=== PATIENT | female | born 1995 | race Caucasian/White ===

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

== ENCOUNTER 2017-04-26 21:55 | Emergency (ER) | payer OTHER ==
[2017-04-26] MEDS ORDERED: Sodium Chloride 0.9% 1,000 ML IV ONE (22:22)
[2017-04-26 22:27] VITALS: BP 101/67; PULSE 99; RESP 16; TEMP 97.9; O2SAT 99
--- NOTE | 2017-04-26 22:32 | C.PDOC ---
History Of Present Illness 21 y/o healthy female c/o nausea, abdominal pain, subjective fever, dizziness when standing, sore throat for the last 2 days. denies urinary symptoms, denies vaginal discharge. denies sick contacts. Time Seen by Provider: 04/26/17 22:13 Chief Complaint (Nursing): Cough, Cold, Congestion History Per: Patient, Family History/Exam Limitations: no limitations Onset/Duration Of Symptoms: Days (2) Current Symptoms Are (Timing): Still Present Severity: Mild Past Medical History Reviewed: Historical Data, Nursing Documentation, Vital Signs Vital Signs: Last Vital Signs Temp 97.9 F 04/26/17 21:57 Pulse 99 H 04/26/17 21:57 Resp 16 04/26/17 21:57 BP 101/67 04/26/17 21:57 Pulse Ox 99 04/27/17 06:50 - Medical History PMH: No Chronic Diseases Family History: States: Unknown Family Hx - Social History Hx Tobacco Use: No Hx Alcohol Use: No Hx Substance Use: No Review Of Systems Constitutional: Positive for: Fever (subjective). Negative for: Chills ENT: Positive for: Throat Pain. Negative for: Ear Pain, Nose Discharge Cardiovascular: Negative for: Chest Pain, Palpitations, Light Headedness Respiratory: Negative for: Cough, Shortness of Breath Gastrointestinal: Positive for: Nausea, Abdominal Pain. Negative for: Vomiting , Diarrhea, Constipation Genitourinary: Negative for: Dysuria, Frequency, Vaginal Discharge Skin: Negative for: Rash Neurological: Positive for: Dizziness. Negative for: Weakness, Numbness Physical Exam - Physical Exam Appears: Non-toxic, No Acute Distress, Other (talking on phone and with family members present) Skin: Normal Color, Warm, Dry Head: Atraumatic, Normacephalic Eye(s): bilateral: Normal Inspection, PERRL, EOMI (no nystagmus) Ear(s): Left: Normal, Right: TM Dull Nose: Normal, No Discharge Oral Mucosa: Dry (slightly) Tongue: Normal Appearing Throat: Erythema (mild), No Exudate, Other (no tonsillar enlargement) Neck: Supple Cardiovascular: Rhythm Regular, No Murmur Respiratory: Normal Breath Sounds, No Accessory Muscle Use, No Rales, No Rhonchi , No Stridor, No Wheezing Gastrointestinal/Abdominal: Bowel Sounds, Soft, Tenderness (minimal left lateral abdominal tenderness, no rebound or guarding. ) Back: No CVA Tenderness Extremity: No Tenderness, No Pedal Edema Neurological/Psych: Oriented x3, Normal Speech, Normal Cognition, Normal Cranial Nerves, Normal Motor, Normal Sensation ED Course And Treatment - Laboratory Results Result Diagrams: 04/26/17 22:45 04/26/17 22:45 O2 Sat by Pulse Oximetry: 99 Medical Decision Making Medical Decision Making: pt feeling much better after zofran and iv fluids. neg orthostatic vital signs. pt to be discharge with tx for uti and f/u pmd Disposition Counseled Patient/Family Regarding: Studies Performed, Diagnosis, Need For Followup, Rx Given - Disposition Referrals: Demario Romero MD [Staff Provider] - Disposition: HOME/ ROUTINE Disposition Time: 23:58 Condition: IMPROVED Additional Instructions: Drink increased fluids. Take antibiotics as prescribed. Follow up with your doctor in 1-2 days. Tylenol or Motrin for pain. Return to ER for any worse symptoms. Prescriptions: Cephalexin [Keflex] 500 mg PO TID #21 capsule Instructions: Urinary Tract Infection in Women (ED), Viral Syndrome (ED) Forms: [facility] ([place]), General Discharge Instructions - Clinical Impression Clinical Impression: Viral syndrome, UTI (urinary tract infection)
[2017-04-26] MEDS ORDERED: Sodium Chloride 0.9% 1,000 ML ONE (22:39)
[2017-04-26 22:48] LABS: BASO # 0.1 K/uL (0.0-0.2); EOS # 0.1 K/uL (0.0-0.7); EOS % 1.2 % (0.0-4.0); HEMATOCRIT 38.5 % (34.0-47.0); LYMPH % 25.1 % (20.0-40.0); MEAN CELL VOLUME 83.9 fL (81.0-99.0); MEAN CORPUSCULAR HEMOGLOBIN 27.2 pg (27.0-31.0); MEAN CORPUSCULAR HGB CONC 32.5 g/dL (33.0-37.0); MONO # 1.1 K/uL (0.0-0.8); MONO % 9.5 % (0.0-10.0); RED CELL DISTRIBUTION WIDTH 16.3 % (11.5-14.5); WHITE BLOOD COUNT 12.1 K/uL (4.8-10.8)
[2017-04-26 22:55] LABS: RBC URINE 1 /hpf (0-3); URINE BACTERIA RARE (<OCC); URINE BILIRUBIN NEGATIVE (NEGATIVE); URINE BLOOD NEGATIVE (NEGATIVE); URINE COLOR Yellow (YELLOW); URINE GLUCOSE (UA) NORMAL (Normal); URINE KETONE NEGATIVE (NEGATIVE); URINE LEUKOCYTE ESTERASE 2+ Leu/uL (Negative); URINE PROTEIN 1+ mg/dL (NEGATIVE); URINE UROBILINOGEN NORMAL mg/dL (0.2-1.0); WBC URINE 24 /hpf (0-5)
[2017-04-26 23:02] LABS: ALB/GLOB RATIO 1.1 (1.0-2.1); ALKALINE PHOSPHATASE 45 U/L (38-126); ALT/SGPT 28 U/L (9-52); AST/SGOT 20 U/L (14-36); BILIRUBIN,TOTAL 0.4 mg/dL (0.2-1.3); BLOOD UREA NITROGEN 15 mg/dL (7-17); GFR AFRICAN-AMERICAN > 60; GLUCOSE,RANDOM 78 mg/dL (65-105); TOTAL PROTEIN 8.4 g/dL (6.3-8.3)
[2017-04-26 23:38] LABS: POTASSIUM 3.6 mmol/L (3.6-5.2)
[2017-04-26 23:39] LABS: CARBON DIOXIDE 22 mmol/L (22-30); CHLORIDE 103 mmol/L (98-107); SODIUM 137 mmol/L (132-148)
== END 2017-04-27 00:07 | disposition home or self-care (01) ==
LOC: C.ER 21:55
DX: B34.9 Viral infection, unspecified (principal); N39.0 Urinary tract infection, site not specified
CPT/HCPCS: 80053; 81001; 83690; 84703; 85025; 96361; 96374; 99283; J2405; J7040